=== PATIENT | female | born 1985 | race African-American/Black ===

== ENCOUNTER 2020-11-04 15:43 | Emergency (ER) | payer OTHER | END 2020-11-04 16:45 | disposition left against medical advice (07) | LOC: MADERS 15:43 | DX: O26.892 Other specified pregnancy related conditions, second trimester (principal); R10.9 Unspecified abdominal pain; O9A.212 Injury, poisoning and certain other consequences of external causes complicating pregnancy, second trimester; S16.1XXA Strain of muscle, fascia and tendon at neck level, initial encounter; O99.282 Endocrine, nutritional and metabolic diseases complicating pregnancy, second trimester; E03.9 Hypothyroidism, unspecified; Z3A.34 34 weeks gestation of pregnancy | CPT/HCPCS: 99284 ==